=== PATIENT | male | born 1975 | race Caucasian/White ===

== ENCOUNTER 2017-02-22 12:22 | Emergency (ER) | payer MEDICAID ==
[~2017-02-22] VITALS: Ht 182.9 cm; Wt 88.7 kg
[2017-02-22 12:25] VITALS: BP 126/90
[2017-02-22] MEDS ORDERED: KETOROLAC 30 MG/1 ML ONE (13:41)
[2017-02-22] MEDS ORDERED: KETOROLAC 30 MG/1 ML IM ONE (14:00)
== END 2017-02-22 14:09 | disposition home or self-care (01) ==
LOC: ED 14:03
DX: M76.9 Unspecified enthesopathy, lower limb, excluding foot (principal); Z86.19 Personal history of other infectious and parasitic diseases
CPT/HCPCS: 96372; 99283; J1885